=== PATIENT | male | born 1965 | race Caucasian/White ===

== ENCOUNTER → 2022-07-21 | Outpatient (CLI) | payer OTHER, SELFPAY ==
--- NOTE | 2022-07-21 | IMM_PTH ---
PATIENT: RACQUEL SONI Sr. LOC: LAB U#:[id number] AGE/SX: 56/M ROOM: RE07/21/[address]: Dr. Garrison Peralta MD : 1965 BED: DIS: 07/21/2022 SPEC #: [id number] RECD: 07/25/22 09:16 STATUS: PIERO REQ #: [id number] SHABBIR: 07/21/22 00:[address]: Garrison Peralta DEPT: IMMUNOHISTOCHEMISTRY RECD BY: Mojgan Cárdenas ENTERED: 07/25/22 09:18 SP TYPE: IMMUNO OTHR DR: OMID Sheets Tissues: Neck, NOS Procedures: NAPSIN A (add) CK20 (add) CK5-6 (add) CK7 (add) CK8 (add) TTF1 (add) 34BE12 (add) Pankeratin (initial) P40 (add) PHYSICIAN & [address] [address] SPECIMEN INFORMATION: Tissue Source: Left neck mass Clinical Info: Left neck mass Specimen Number: [id number] CPT code: 77919, 79999 x8 METHODOLOGY: Deparaffinized sections of prefer/formalin-fixed tissue or PAP/DQ stained slides are incubated with monoclonal/polyclonal antibodies/oligonucleotide probes. Localization is made via biotin free immunoperoxidase method. Appropriate controls are performed and reacted as expected. Results on target cell population are indicated in the following table: RESULTS: ANTIBODY / CLONE RESULT AE1-3 (AE1/AE3/PCK26) negative CK7 (OV-TL12/30) negative CK8 (45noacP42) negative CK20 (KS20.8) negative 34BE12 (34BE12) positive TTF-1 (8G7G3/1) negative Napsin A (Rabbit Polyclonal) negative CK5-6 (D5 & 1684) positive P40 (BC28) positive These tests were developed and their performance characteristics determined by [facility]. They may not have been cleared or approved by the U.S. Food and Drug Administration. The FDA has determined that such clearance or approval is not necessary. The above immunohistochemical/dualISH markers are ordered and reviewed by the Pathologist. INTERPRETATION: Left neck mass, fine needle aspiration: Consistent with squamous cell carcinoma. AM:sandra 07/25/2022
--- NOTE | 2022-07-21 09:30 | ASPOS_PTH ---
PATIENT: RACQUEL SONI Vane LOC: [facility] U#:[id number] AGE/SX: 56/M ROOM: RE07/21/[address]: Dr. 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 See comment. AM:sandra 07/24/2022 COMMENT The specimen is evaluated at the time of FNA by Dr. Flores. Immediate Evaluation = Positive for malignant cells consistent with non-small cell carcinoma. Immunohistochemistry ([id number]) supports the above diagnosis. CYTOLOGY STUDY Slides are reviewed. CYTOLOGY GROSS Received is 0.2 ml of reddish fluid labeled with the patient's name, and designated left neck mass. Five imprints and three pap smears are made from the submitted fluid and the rest is added to CytoLyt for cell block preparation. Submitted for cytology study. / AM:sandra 07/21/2022 TC:0 CPT: 15690,85739,98778,09058
== END | disposition home or self-care (01) ==
PROVIDERS: PCP Physician Assistant; Referring Provider Otolaryngology; Visit Provider Otolaryngology
DX: R22.1 Localized swelling, mass and lump, neck (principal)
CPT/HCPCS: 10021; 88161; 88305; 88341; 88342

== ENCOUNTER → 2022-08-09 | Outpatient (CLI) | payer OTHER, SELFPAY ==
--- NOTE | 2022-08-09 08:30 | PET_ITS ---
EXAMINATION: FDG PET-CT INDICATIONS: A 56-year-old male with a history of head and neck carcinoma presenting for initial staging examination. COMPARISON EXAMINATION: INDEX LESION SIZE SUV INTERPRETATION Left pharyngeal mucosal space 15.1 mm 8.0 Fulfills quantitative criteria for viable neoplasm. Left parapharyngeal space 18.6 mm 6.8 Fulfills quantitative criteria for viable neoplasm. Left lateral neck IIA 19.4 mm 5.6 Fulfills quantitative criteria for viable neoplastic involvement. TECHNIQUE: Following the intravenous administration of 12.814 mCi of F-18 deoxyglucose via the left antecubital fossa, multiplanar image acquisitions of the head, neck, chest, abdomen and pelvis to level of mid-thigh, lower extremities obtained at one hour post radiopharmaceutical administration contemporaneously interpreted with the current CT of the head, neck, chest, abdomen and pelvis to level of mid-thigh, lower extremities dated 08/09/22 via coregistration reveal: SERUM GLUCOSE LEVEL: 78 mg/dl. HEIGHT: 70 inches. WEIGHT: 208 lbs. FINDINGS: Head/Neck: Enhanced glucose metabolism is noted in the left pharyngeal mucosal space, tongue base with a calculated maximum standard uptake value of 8.0. The maximum axial diameter of the metabolic, morphologic abnormality is 15.1 mm. Facilitated FDG concentration is demonstrated in the left parapharyngeal space with a calculated maximum standard uptake value of 6.8. The maximum axial diameter of the metabolic, morphologic abnormality is 18.6 mm. Increased radiopharmaceutical is visualized in the left lateral neck involving level IIA. The calculated maximum standard uptake value is 5.6 with a maximum axial diameter of 19.4 mm. The visualized portion of the cerebral cortical-subcortical structures demonstrate symmetric and preserved glucose metabolism. CHEST: There is no quantitative scintigraphic evidence of abnormal increased glucose metabolism within the context of the bilateral hemithorax pulmonary parenchyma, right and left hemithoracic pleural interface, mediastinal structures and thoracic perihilum.? Prominent radiopharmaceutical concentration is identified in the left ventricular myocardium commensurate with the [place]. Pertinent chest CT findings are as follows. Bilateral axillary soft tissue densities are nonglucose avid. Mediastinal soft tissue densities are ametabolic. There is atherosclerotic calcification defined in the thoracic aorta without evidence of dilatation-aneurysm formation. Coronary arterial calcification is observed. There are no parenchymal densities-nodules defined in the right and left hemithorax with quantitatively significant increased FDG uptake. Abdomen/Pelvis: Normal physiologic distribution of the radiopharmaceutical is apparent in the hepatic (4.1) and splenic parenchyma, left renal unit, bladder and visualized intestinal tract. Diffuse radiopharmaceutical concentration is noted in all four quadrants of the abdomen and pelvis. The abdomen and pelvis CT findings are as follows. The gallbladder appears surgically absent. There is atherosclerotic calcification defined in the abdominal aorta without evidence of dilatation-aneurysm formation. Pelvic arterial calcification is encountered. Colonic diverticulosis is noted. Right-left inguinal soft tissue densities are nonglucose avid. There is both metabolic and morphologic absence of the right renal unit. Surgical clips are identified in the right renal bed. Skeletal: Degenerative changes are noted in the cervical, thoracic and lumbar spine. There is no visualized sclerotic-lytic changes manifest on review of the appendicular-axial skeletal structures. PET/PET/CT Tumor Base -Thigh Init IMPRESSION: 1. ABNORMAL EXAMINATION INDICATIVE OF MALIGNANT-VIABLE NEOPLASM. 2. The increase in FDG concentration noted in the left pharyngeal mucosal space, tongue base fulfills quantitative criteria for neoplasia. 3. Enhanced tracer uptake noted in the left parapharyngeal space fulfills quantitative criteria for malignant transformation. 4. Increased radiopharmaceutical concentration noted in the left lateral neck fulfills quantitative criteria for viable metastatic involvement. Electronic Signature Erlin Mcdonald D.O. Accurate Quantification of SUVs for this report are calculated using the exclusive [employer] Technology. (U.S. Patent No. [id number] [id number]). Standardization and correction of the FDG SUV metric via [employer] technology allow for vendor non-specific objective quantitative examination comparison and optimization of the sensitivity and specificity of the FDG PET-CT examination. Electronically Signed: Erlin Mcdonald, at 10:02 [facility] ,
== END | disposition home or self-care (01) ==
PROVIDERS: PCP Physician Assistant; Referring Provider Otolaryngology; Visit Provider Otolaryngology
DX: C76.0 Malignant neoplasm of head, face and neck (principal); Z85.528 Personal history of other malignant neoplasm of kidney
CPT/HCPCS: 78815; A9552

== ENCOUNTER 2022-08-16 10:15 | Day surgery (SDC) | payer OTHER, SELFPAY ==
[2022-08-16] MEDS: Lactated Ringers 1,000 ML 15 ML IV (11:09)
[2022-08-16 11:10] VITALS: BP 118/82; PULSE 72; RESP 18; TEMP 36.8; O2SAT 100; BMI 32.9
[2022-08-16] MEDS: Oxymetazoline 0.05% 1 SPRAY SPRAY.BTL 15 SPRAY (11:58)
--- NOTE | 2022-08-16 12:00 | TOBX_PTH ---
PATIENT: RACQUEL SONI Vane LOC: [facility] U#:[id number] AGE/SX: 56/M ROOM: RE08/16/[address]: Dr. Garrison Peralta MD : 1965 BED: DIS: 08/16/2022 SPEC #: [id number] RECD: 08/16/22 13:54 STATUS: PIERO TORRES #: [id number] SHABBIR: 08/16/22 12:[address]: Garrison Peralta DEPT: SURGICAL PATHOLOGY RECD BY: Mojgan Cárdenas ENTERED: 08/18/22 08:55 SP TYPE: TONGUE BX OTHR DR: OMID Sheets Tissues: A - Tongue, NOS B - Tongue, NOS Procedures: Surgery Specimen Level IV HEADER OPERATION: Direct laryngoscopy, biopsy base of tongue PRE-OP DIAGNOSIS: Oropharyngeal mass TISSUE SUBMITTED: A ? Right tongue base for HPV and P16, B ? Left tongue base for HPV and P16 MICROSCOPIC DIAGNOSIS A. Right tongue base, biopsy: A piece of squamous mucosa with underlying lymphoid tissue with reactive changes, negative for atypia or malignancy. See comment. B. Left tongue base, biopsy: A piece of benign squamous mucosa with vascular ectasia. Negative for atypia or malignancy. See comment. SJ:rg 08/18/2022 COMMENT A. The lymphoid tissue may represent lingual tonsil. A & B. Rebiopsy/excisional biopsy of the lesion is suggested if clinically indicated. Immunohistochemistry for surrogate HPV marker (p16) can be performed if clinically indicated. Please notify the laboratory if it is needed Correlation with clinical findings and appropriate follow up are necessary. MICROSCOPIC DESCRIPTION Slides are reviewed. GROSS DESCRIPTION A - Received in fixative is one container labeled with the patient's name and designated right tongue base. The specimen consists of a piece of ontiveros soft tissue measuring 0.5 x 0.5 x 0.2 cm. The entire specimen is submitted in one cassette. B - Received in fixative is one container labeled with the patient's name and designated left tongue base. The specimen consists of a piece of ontiveros mucosal tissue measuring 0.6 x 0.2 x 0.1 cm. The entire specimen is submitted in one cassette. / KEVEN:sandra 08/16/2022 TC:5 CPT:
--- NOTE | 2022-08-16 12:00 | DCINST_ITS ---
Discharge Instructions Diet Discharge Diet: No restrictions Activity Discharge Activity: Return to Normal Activity Dressing / Incision Call your doctor if your incision/area has: Increased Pain/ Swelling Follow Up Care Please Follow Up With: Garrison Peralta MD When: 1 week Test Results: Test results from this visit will be discussed in further detail at your follow- up appointment, if applicable. Discharge Plan Admission Attending Provider: Garrison Peralta Primary Care Provider: Giovani Acosta Discharge Orders/Prescriptions Prescriptions: No Action NK Referrals / Follow Up: Giovani Acosta PA [Primary Care Provider] - Disposition Disposition (needs filled in before D/C Order can be placed): Home, Self Care
--- NOTE | 2022-08-16 12:01 | PCM.OPRPT ---
Problems Associated Problem List Diagnoses (1) Oropharyngeal mass: Report of Operation Date of Procedure: 08/16/22 Pre-Operative Diagnosis: oropharyngeal mass Post-Operative Diagnosis: oropharyngeal mass Surgery/Procedure Performed:: direct laryngoscopy with tongue base biopsy, use of operative telescope Surgeon: Garrison Peralta Type of Anesthesia: General Description of Procedure: on the day of the procedure, after appropriate informed consent was obtained, the patient was brought to the operating room and placed in supine position on the operating table. he was placed under general endotracheal anesthesia by the anesthesiologist. the endotracheal tube was secured, the eyes were taped. the table was rotated 90 degrees toward the surgeon. a tooth guard was placed. a rodrigo laryngoscope was used to evaluate the tongue base. multiple right and left biopsies were taken and sent separately to pathology. his anatomy made the exam difficult, but it appeared the mass is to the RIGHT of midline. hemostasis was achieved with oxymetazoline-soaked pledgets. the laryngoscope was removed. the patient was awoken from anesthesia and transferred to the PACU in stable condition.
[2022-08-16 12:40] VITALS: BP 118/82; BP 123/94; PULSE 95; RESP 16; TEMP 36.4; O2SAT 96
[2022-08-16 12:45] VITALS: BP 118/82; BP 118/85; PULSE 95; RESP 16; O2SAT 97
[2022-08-16 13:00] VITALS: BP 114/86; BP 118/82; PULSE 88; RESP 16; O2SAT 95
[2022-08-16 13:02] VITALS: BP 118/82; BP 119/81; PULSE 84; RESP 16; TEMP 36.4; O2SAT 96
[2022-08-16] MEDS: Acetaminophen 325 MG Tablet 650 MG PO (13:28)
[2022-08-16 13:47] VITALS: BP 114/77; BP 118/82; PULSE 85; RESP 18; TEMP 36.1; O2SAT 96
== END 2022-08-16 13:50 | disposition home or self-care (01) ==
LOC: SDC 10:17 → AC 10:18
PROVIDERS: PCP Physician Assistant; Referring Provider Otolaryngology; Visit Provider Otolaryngology
PROC: 0CJS8ZZ Inspection of Larynx, Via Natural or Artificial Opening Endoscopic (ICD-10-PCS; CPT 31575; principal; 2022-08-16 11:45)
DX: R22.9 Localized swelling, mass and lump, unspecified (principal); Z90.5 Acquired absence of kidney; Z87.891 Personal history of nicotine dependence
CPT/HCPCS: 31536; 00320; 88305; J7120